=== PATIENT | female | born 1970 | race Caucasian/White ===

== ENCOUNTER → 2016-08-12 | Outpatient (CLI) | payer OTHER | LOC: LAB 11:00 | DX: E03.8 Other specified hypothyroidism (principal) ==

== ENCOUNTER → 2016-09-21 | Outpatient (CLI) | payer OTHER | LOC: MAMMO 14:28 | DX: Z12.31 Encounter for screening mammogram for malignant neoplasm of breast (principal) | CPT/HCPCS: G0202 ==

== ENCOUNTER → 2017-03-16 | Outpatient (CLI) | payer OTHER | LOC: LAB 14:04 | DX: E03.9 Hypothyroidism, unspecified (principal); Z82.49 Family history of ischemic heart disease and other diseases of the circulatory system; R53.83 Other fatigue; E89.2 Postprocedural hypoparathyroidism ==

== ENCOUNTER → 2017-03-25 | Outpatient (CLI) | payer OTHER | LOC: LAB 13:14 | DX: D64.9 Anemia, unspecified (principal) ==

== ENCOUNTER → 2017-06-25 | Outpatient (CLI) | payer OTHER ==
[2017-06-25 15:31] LABS: URINE COLOR YELLOW
[2017-06-25 15:32] LABS: URINE APPEARANCE HAZY; URINE BILIRUBIN NEGATIVE (NEGATIVE); URINE BLOOD NEGATIVE (NEGATIVE); URINE GLUCOSE NEGATIVE (NEGATIVE); URINE KETONE NEGATIVE (NEGATIVE); URINE LEUKOCYTE ESTERASE 1+ (NEGATIVE); URINE NITRATE NEGATIVE (NEGATIVE); URINE PROTEIN(semi-quant) NEGATIVE (NEGATIVE); URINE UROBILINOGEN NORMAL (NORMAL)
== END ==
LOC: LAB 14:45
PROVIDERS: Family Medicine
DX: R30.0 Dysuria (principal)

== ENCOUNTER → 2018-03-28 | Outpatient (CLI) | payer OTHER ==
[2018-03-28 23:27] LABS: T3 FREE 2.4 pg/mL (1.7-3.7)
== END ==
LOC: LAB 16:08
PROVIDERS: Family Medicine
DX: E03.9 Hypothyroidism, unspecified (principal)

== ENCOUNTER 2018-10-19 10:30 | Outpatient (RCR) | payer OTHER | END 2018-10-19 11:00 | LOC: PT 10:30 | DX: M54.9 Dorsalgia, unspecified (principal) ==

== ENCOUNTER → 2019-01-12 | Outpatient (CLI) | payer OTHER ==
[2019-01-12 08:22] LABS: ALBUMIN 3.8 g/dL (3.5-5.0)
[2019-01-12 08:23] LABS: CALCIUM 8.8 mg/dL (8.3-10.5)
[2019-01-12 08:25] LABS: TOTAL PROTEIN 6.5 g/dL (6.4-8.3)
[2019-01-12 08:26] LABS: TOTAL BILIRUBIN 0.6 mg/dL (0.2-1.2)
== END ==
LOC: LAB 08:04
PROVIDERS: Family Medicine
DX: Z13.1 Encounter for screening for diabetes mellitus (principal); Z13.6 Encounter for screening for cardiovascular disorders

== ENCOUNTER → 2019-01-29 | Outpatient (CLI) | payer OTHER | LOC: MAMMO 07:14 | DX: N63.11 Unspecified lump in the right breast, upper outer quadrant (principal); N63.12 Unspecified lump in the right breast, upper inner quadrant ==

== ENCOUNTER → 2019-05-12 | Outpatient (CLI) | payer OTHER | LOC: LAB 09:53 | DX: E03.9 Hypothyroidism, unspecified (principal) ==

== ENCOUNTER → 2020-05-14 | Outpatient (CLI) | payer OTHER | LOC: MAMMO 14:30 | DX: Z13.820 Encounter for screening for osteoporosis (principal); M85.80 Other specified disorders of bone density and structure, unspecified site ==

== ENCOUNTER → 2020-07-09 | Outpatient (CLI) | payer OTHER | LOC: LAB 11:14 | DX: E03.9 Hypothyroidism, unspecified (principal) ==

== ENCOUNTER → 2021-03-11 | Outpatient (CLI) | payer OTHER | LOC: RAD 11:41 | DX: M79.672 Pain in left foot (principal) ==

== ENCOUNTER → 2021-04-29 | Outpatient (CLI) | payer OTHER | LOC: MAMMO 11:27 | DX: Z12.31 Encounter for screening mammogram for malignant neoplasm of breast (principal) ==

== ENCOUNTER → 2021-05-08 | Outpatient (CLI) | payer OTHER ==
[2021-05-08 08:56] LABS: BASO # 0.09 K/mm3 (0.02-0.10); EOS # 0.37 K/mm3 (0.04-0.40); EOS % 5.5 % (1.0-5.0); HEMATOCRIT 43.4 % (37.0-47.0); HEMOGLOBIN 14.7 g/dL (12.5-16.0); LYMPH# 2.16 K/mm3 (1.50-4.00); MEAN CELL VOLUME 91 fl (78-100); MEAN CORPUSCULAR HEMOGLOBIN 31 pg (27-31); MEAN CORPUSCULAR HGB CONC 34 g/dL (33-37); MEAN PLATELET VOLUME 9.3 fl (7.4-10.4); NEU # 3.45 K/mm3 (1.40-6.50); PLATELET COUNT 369 K/mm3 (130-400); RED BLOOD COUNT 4.77 M/mm3 (4.10-5.30); RED CELL DISTRIBUTION WIDTH 11.7 % (11.5-14.5); WHITE BLOOD COUNT 6.7 K/mm3 (4.8-10.8)
[2021-05-08 09:04] LABS: ALBUMIN 4.1 g/dL (3.5-5.0)
[2021-05-08 09:05] LABS: POTASSIUM 4.4 mmol/L (3.5-5.1)
[2021-05-08 09:06] LABS: CALCIUM 9.3 mg/dL (8.3-10.5)
[2021-05-08 09:07] LABS: TOTAL PROTEIN 6.8 g/dL (6.4-8.3)
[2021-05-08 09:09] LABS: TOTAL BILIRUBIN 0.5 mg/dL (0.2-1.2)
[2021-05-09 00:06] LABS: PROGESTERONE 8.9 ng/mL (()); T3 FREE 3.2 pg/mL (1.7-3.7)
== END ==
LOC: LAB 08:32
PROVIDERS: Family Medicine
DX: Z01.89 Encounter for other specified special examinations (principal)

== ENCOUNTER → 2021-09-07 | Outpatient (CLI) | payer OTHER | LOC: LAB 13:43 | DX: R00.2 Palpitations (principal) ==

== ENCOUNTER → 2021-11-06 | Outpatient (CLI) | payer OTHER ==
[2021-11-06 08:55] LABS: ALBUMIN 3.7 g/dL (3.5-5.0); POTASSIUM 4.2 mmol/L (3.5-5.1)
[2021-11-06 08:56] LABS: CALCIUM 8.9 mg/dL (8.3-10.5)
[2021-11-06 08:58] LABS: TOTAL PROTEIN 6.8 g/dL (6.4-8.3)
[2021-11-06 08:59] LABS: TOTAL BILIRUBIN 0.7 mg/dL (0.2-1.2)
== END ==
LOC: LAB 08:25
PROVIDERS: Family Medicine
DX: R10.11 Right upper quadrant pain (principal)

== ENCOUNTER → 2022-07-21 | Outpatient (CLI) | payer OTHER | LOC: MAMMO 07-09 08:00 | DX: Z12.31 Encounter for screening mammogram for malignant neoplasm of breast (principal); M85.89 Other specified disorders of bone density and structure, multiple sites ==